=== PATIENT | female | born 1975 | race Caucasian/White ===

== ENCOUNTER 2017-01-30 22:50 | Emergency (ER) | payer OTHER ==
[~2017-01-30] VITALS: Ht 170.2 cm; Wt 90.7 kg
[~2017-01-30 22:50] MED LIST: ADVI200C5 PO; COLA100C3 PO; IBUP200C PO; LORA-376 PO; PERC5TAB6 PO; SERT25TA PO; TYLE325C PO
[2017-01-30] MEDS ORDERED: RANI15TA PO (23:07)
[2017-01-30] MEDS: dexameTHASONE 20 MG/5 ML VIAL (J1100) IV ONE ×2 (23:30→23:42)
[2017-01-30] MEDS ORDERED: KETOROLAC 30 MG/ML VIAL (J1885) IV ONE (23:30)
[2017-01-30] MEDS ORDERED: ONDANSETRON 4MG/2ML VIAL (J2405) As Ordered ONE (23:47)
[2017-01-31] MEDS ORDERED: ONDANSETRON 4MG/2ML VIAL (J2405) IV ONE (00:30)
[2017-01-31 01:07] VITALS: BP 122/74
== END 2017-01-31 01:18 | disposition home or self-care (01) ==
LOC: M ED 23:37
DX: R51 Headache (principal); F41.9 Anxiety disorder, unspecified; F32.9 Major depressive disorder, single episode, unspecified; G89.29 Other chronic pain; M54.2 Cervicalgia; Z79.899 Other long term (current) drug therapy; Z88.0 Allergy status to penicillin
CPT/HCPCS: 82375; 85652; 96374; 96375; 99282; J1885; J2405

== ENCOUNTER 2017-02-04 01:04 | Emergency (ER) | payer OTHER ==
[~2017-02-04] VITALS: Ht 170.2 cm; Wt 95.3 kg
[~2017-02-04 01:04] MED LIST changes: +RANI15TA PO
[2017-02-04 01:16] VITALS: BP 150/80
[2017-02-04] MEDS ORDERED: ZANA2CAP PO (01:23)
== END 2017-02-04 04:06 | disposition left against medical advice (07) ==
LOC: M ED 02:12
DX: Z53.21 Procedure and treatment not carried out due to patient leaving prior to being seen by health care provider (principal)

== ENCOUNTER 2017-02-13 00:08 | Emergency (ER) | payer OTHER ==
[~2017-02-13 00:08] MED LIST changes: +ZANA2CAP PO
[2017-02-13 03:51] LABS: ANION GAP 4 MEQ/L (8-16); BLOOD UREA NITROGEN 13 MG/DL (7-18); CALCIUM LEVEL 8.9 MG/DL (8.5-10.1); CARBON DIOXIDE LEVEL 30 MEQ/L (21-32); CHLORIDE LEVEL 109 MEQ/L (98-107); CREATININE FOR GFR 0.72 MG/DL (0.55-1.02); GLOMERULAR FILTRATION RATE > 60.0 (>58); GLUCOSE, FASTING 92 MG/DL (70-105); MAGNESIUM LEVEL 2.4 MG/DL (1.8-2.4); POTASSIUM SERUM 4.2 MEQ/L (3.5-5.1); SODIUM LEVEL 143 MEQ/L (136-145)
[2017-02-13 03:53] LABS: BASO % 0.2 % (0.0-1.0); EOS # 0.1 K/mm3 (0.0-0.50); EOS % 2.4 % (0.0-3.0); LARGE UNSTAINED CELL # 0.1 K/mm3 (0.0-0.4); LARGE UNSTAINED CELL % 1.5 % (0.0-4.0); LYMPH # 1.6 K/mm3 (1.5-4.5); LYMPH % 29.9 % (24.0-44.0); MEAN CORPUSCULAR HEMOGLOBIN 32.5 pg (27.0-33.0); MEAN CORPUSCULAR HGB CONC 35.3 g/dl (32.0-36.5); MEAN CORPUSCULAR VOLUME 92.1 fl (80.0-96.0); MONO # 0.3 K/mm3 (0.0-0.8); MONO % 5.6 % (0.0-5.0); NEUTROPHILS # 3.1 K/mm3 (1.8-7.7); NEUTROPHILS % 60.3 % (36.0-66.0); PLATELET COUNT, AUTOMATED 210 k/mm3 (150-450); RED CELL DISTRIBUTION WIDTH 12.3 % (11.5-14.5); WHITE BLOOD COUNT 5.1 K/mm3 (4.0-10.0)
--- NOTE | 2017-02-13 11:53 | ED PDOC ---
Post-Departure Follow-Up This record was completely or partially completed on paper due to EMR downtime. Please see scanned paper chart. Maliha Alas MD, Sarah MD Feb 13, 2017 11:53
--- NOTE | 2017-02-14 09:13 | ECGEPIP ---
Stationary ECG Study [facility] - ED Test Date: 2017-02-13 Pat Name: RAMON FOSTER Department: Room: - Gender: F [employer] Machinist: leandra : [id number] Requested By: GIANA Diaz Order Number: [id number] Reading MD: Maliha Alas Measurements Intervals [place] Rate: 70 P: 7 ME: 147 QRS: -3 QRSD: 110 T: 9 QT: 394 QTc: 425 Interpretive Statements SINUS RHYTHM SIMILAR 09/25/16 Electronically Signed On 02-14-2017 9:12:35 EDT by Maliha Alas
== END 2017-02-13 02:45 | disposition home or self-care (01) ==
LOC: M ED 01:00
DX: R42 Dizziness and giddiness (principal); R07.89 Other chest pain; I61.9 Nontraumatic intracerebral hemorrhage, unspecified; Z88.0 Allergy status to penicillin; Z79.899 Other long term (current) drug therapy
CPT/HCPCS: 36415; 80048; 82550; 82553; 83735; 85025; 93005; 99281; J3360